=== PATIENT | female | born 1985 | race Caucasian/White ===

== ENCOUNTER 2016-07-01 05:23 | Observation (INO) | payer BC ==
[~2016-07-01] VITALS: Ht 165.1 cm; Wt 102.5 kg
[~2016-07-01 05:23] MED LIST: MULT-8
[2016-07-01 06:13] VITALS: BP 147/78; PULSE 87; RESP 18; TEMP 99; O2SAT 98
[2016-07-01] MEDS ORDERED: ceFAZolin 2 GM PREMIX 50 ML ONE (06:21)
[2016-07-01 06:47] LABS: BASOPHIL % 0.3 % (0.0-2.0); EOSINOPHIL # 0.2 TH/MM3 (0-0.4); EOSINOPHIL % 2.3 % (0.0-4.0); HEMATOCRIT 38.6 % (35.0-46.0); HEMO FLAGS DIFF FINAL; LYMPH % 22.8 % (9.0-44.0); LYMPHOCYTE # 1.8 TH/MM3 (1.0-4.8); MEAN CELL VOLUME 87.4 FL (80.0-100.0); MEAN CORPUSCULAR HEMOGLOBIN 29.7 PG (27.0-34.0); MONO % 9.8 % (0.0-8.0); NEUT % 64.8 % (16.0-70.0); PLATELET COUNT 281 TH/MM3 (150-450); RED BLOOD COUNT 4.41 MIL/MM3 (4.00-5.30); RED CELL DISTRIBUTION WIDTH 12.7 % (11.6-17.2); WHITE BLOOD COUNT 7.8 TH/MM3 (4.0-11.0)
[2016-07-01] MEDS ORDERED: FAMOTIDINE 20 MG/2 ML VIAL ONE (07:07)
[2016-07-01] MEDS ORDERED: ACETAMINOPHEN 1000 MG/100 ML VIAL IV ONE (07:36)
[2016-07-01] MEDS ORDERED: *morphine SULFATE 8 MG/ML PERIprocedure ONLY ONE ×2 (08:56→09:07)
[2016-07-01] MEDS ORDERED: *diphenhydrAMINE HCL 50 MG/ML VIAL PERIprocedural Use ONLY ONE (09:06)
--- NOTE | 2016-07-01 09:10 | PD.OP ---
Operative Report Date of Surgery: July 01, 2016 Preoperative Diagnosis: (1) Uterine prolapse Postoperative Diagnosis: (1) Uterine prolapse Procedure: TVH bilateral salpingectomy Anesthesia: general oro Surgeon: Shaquille Valdes Leg Man(s): Shaquille Agarwal MD July 01, 2016 09:10
[2016-07-01] MEDS ORDERED: *MEPERIDINE 25 MG INJ VIAL PERIprocedural Use ONLY ONE (09:13)
[2016-07-01] MEDS ORDERED: KETOROLAC TROMETHAMINE 30 MG/ML (IVP) VIAL IVP PRN (09:15)
[2016-07-01] MEDS ORDERED: diphenhydrAMINE HCL 25 MG CAP PO PRN (09:15)
[2016-07-01] MEDS ORDERED: SODIUM CHLORIDE 0.9% FLUSH 10 ML FLUSH IV FLUSH PRN (09:15)
[2016-07-01] MEDS ORDERED: ONDANSETRON HCL 4 MG/2 ML VIAL IVP PRN (09:15)
[2016-07-01] MEDS ORDERED: IBUPROFEN 600 MG TAB PO PRN (09:15)
[2016-07-01] MEDS ORDERED: HYDROmorphone HCL PF 1 MG/ML VIAL IVP PRN (09:15)
[2016-07-01] MEDS ORDERED: DO NOT ADM ANY ANTICOAGULANT DRUGS PRN (09:30)
[2016-07-01] MEDS ORDERED: LACTATED RINGER'S 1000 ML INJ 1,000 ML IV ONE (12:00)
[2016-07-01] MEDS ORDERED: ONDANSETRON HCL 4 MG/2 ML VIAL IV PUSH ONE (12:00)
[2016-07-01] MEDS ORDERED: DICLOFENAC SODIUM 37.5 MG/ML VIAL IV PUSH ONE (12:00)
[2016-07-01] MEDS ORDERED: NEOSTIGMINE 3 MG/3 ML SYR IV ONE (12:00)
[2016-07-01] MEDS ORDERED: PROPOFOL 200 MG/20 ML AMP IV ONE (12:00)
--- NOTE | 2016-07-01 12:39 | MP ---
cc: ESTRELLITA VALDES DATE OF PROCEDURE 07/01/2016 PROCEDURE Total vaginal hysterectomy, bilateral salpingectomy. PREOPERATIVE DIAGNOSIS Prolapse. Pelvic pain. POSTOPERATIVE DIAGNOSIS Prolapse. Pelvic pain. SURGEON Dr. Estrellita Valdes ESTIMATED BLOOD LOSS 300 cc. COMPLICATIONS None. FINDINGS Normal uterus, boggy, with probable adenomyosis. Normal fallopian tubes but they presented themselves to be removed vaginally. PROCEDURE IN DETAIL After informed consent, the patient was taken to the operating room where she was placed under general anesthesia, placed in supine position, legs in the candy-cane stirrups. The abdomen, perineum and vagina were prepped and draped in the normal sterile fashion. After adequate anesthesia and a time-out was taken, a speculum was placed in the vagina, the cervix grasped with a single-tooth tenaculum, injected anteriorly. We entered the anterior cul-de-sac without difficulty with scissors dissecting with Caldera scissors until we reached the anterior cul-de-sac, entered without difficulty. The posterior cul-de-sac was slightly more difficult to enter so clamps were used to clamp the uterine arteries bilaterally before entering the posterior cul-de-sac. A second clamp was used and then we entered the posterior cul-de-sac without difficulty. The clamps then used to clamp the anterior and posterior peritoneum all the way up to the level of the utero-ovarian ligament, clamping, cutting and tying with Vicryl suture. Good hemostasis was achieved along the way. At this point the uterus was amputated and the apex at the very top of the utero-ovarian ligament were doubly tied with Vicryl suture. Good hemostasis had been achieved at all pedicles. At this point the fallopian tubes were on the ovaries and they were presenting to the incision, so we grasped the fallopian tubes bilaterally with the Babcocks and removed them with a Alda clamp and then excising without difficulty. The patient tolerated this well. Good hemostasis was achieved at this point. The vaginal cuff was run with a running locking stitch of chromic suture. Endometriosis was seen in the posterior cul-de-sac which may have obliterated part of the cul-de-sac which was probably why the patient was difficult to enter initially. The vaginal cuff was then closed in multiple [id number] sutures. Good hemostasis was achieved. The patient tolerated the procedure well. She was taken to the recovery room in stable condition. MD NATACHA Metcalf/JUANJOSE /9:15 AM /12:31 PM
[2016-07-01] MEDS ORDERED: MIDAZOLAM HCL 2 MG/2 ML VIAL ONE (14:30)
[2016-07-01 14:55] VITALS: BP 109/59; PULSE 98; RESP 18; TEMP 96.8; O2SAT 96
[2016-07-01] MEDS: oxyCODONE/ACETAMINOPHEN 5 MG/325 MG TAB PO PRN ×2 (15:15→19:17)
[2016-07-01 20:00] VITALS: BP 118/58; PULSE 100; RESP 19; TEMP 98.8; O2SAT 96
[2016-07-01] MEDS: SODIUM CHLORIDE 0.9% FLUSH 10 ML FLUSH IV FLUSH SCH (20:40)
[2016-07-02] VITALS (9 sets, daily range): BP systolic 110–126; BP diastolic 57–72; PULSE 77–92; RESP 17–20; TEMP 97.1–98.7; O2SAT 94–98
[2016-07-02] MEDS: oxyCODONE/ACETAMINOPHEN 5 MG/325 MG TAB PO PRN ×5 (04:35→23:22)
[2016-07-02 06:31] LABS: BASOPHIL % 0.2 % (0.0-2.0); EOSINOPHIL # 0.1 TH/MM3 (0-0.4); EOSINOPHIL % 0.5 % (0.0-4.0); HEMATOCRIT 34.8 % (35.0-46.0); HEMO FLAGS DIFF FINAL; LYMPH % 14.8 % (9.0-44.0); LYMPHOCYTE # 2.1 TH/MM3 (1.0-4.8); MEAN CELL VOLUME 88.2 FL (80.0-100.0); MEAN CORPUSCULAR HEMOGLOBIN 29.3 PG (27.0-34.0); MEAN CORPUSCULAR HGB CONC 33.2 % (32.0-36.0); MONO % 9.1 % (0.0-8.0); NEUT % 75.4 % (16.0-70.0); PLATELET COUNT 284 TH/MM3 (150-450); RED BLOOD COUNT 3.95 MIL/MM3 (4.00-5.30); RED CELL DISTRIBUTION WIDTH 12.8 % (11.6-17.2); WHITE BLOOD COUNT 14.5 TH/MM3 (4.0-11.0)
--- NOTE | 2016-07-02 07:08 | HHI.PR ---
Subjective Remarks Doing well, pain is well controlled, eating well. Objective Vital Signs Vital Signs Date Time Temp Pulse Resp B/P Pulse Ox O2 Delivery O2 Flow Rate FiO2 07/02/16 04:00 97.1 77 19 112/63 97 07/02/16 03:52 94 21 07/02/16 00:00 98.7 84 19 112/57 94 07/01/16 20:00 98.8 100 19 118/58 96 07/01/16 14:55 96.8 98 18 109/59 96 07/01/16 14:15 99.0 93 16 112/55 95 Room Air 07/01/16 13:00 98.7 85 16 4 Room Air 07/01/16 11:30 81 16 115/57 93 Room Air 07/01/16 09:45 84 16 114/65 98 Nasal Cannula 2 07/01/16 09:30 71 16 126/72 97 Nasal Cannula 2 07/01/16 09:15 74 16 125/71 94 Nasal Cannula 2 07/01/16 09:00 102 16 122/68 95 Nasal Cannula 4 07/01/16 08:42 98.2 95 16 135/81 98 Nasal Cannula 4 I/O 07/01/16 07/01/16 07/01/16 07/02/16 07/02/16 07/02/16 07:00 15:00 23:00 07:00 15:00 23:00 Intake Total 2800 ml 380 ml 220 ml Output Total 1325 ml 1200 ml Balance 1475 ml 380 ml -980 ml Intake Oral 600 ml 380 ml 220 ml IV Total 700 ml Other 1500 ml Output Urine Total 525 ml 1200 ml Estimated Blood Loss 300 ml Other 500 ml # Bowel Movements 0 Result Diagram: 07/02/16 0430 Objective Remarks Chest is clear, regular rate and rhythm. Abdomen is soft and non-distended. Incision is clean and dry. Ext no CCE. A/P Assessment and Plan Post Op Day 1 Doing well Home today and return to office in two weeks. Shaquille Valdes MD July 02, 2016 07:08
--- NOTE | 2016-07-02 07:09 | HHI.DCPOC ---
Discharge Care Plan Diagnosis: (1) Uterine prolapse Report Symptoms to Your Doctor -Temperate above 100.5 degrees -Redness, of incision or excessive or foul smelling drainage -Unusual pain or calf pain -Increased vaginal bleeding -Painful or difficulty urinating -Feelings of extreme sadness or anxiety after 2 weeks Goals to Promote Your Health * To prevent worsening of your condition and complications * To maintain your health at the optimal level Directions to Meet Your Goals Take your medications as prescribed Follow your dietary instruction Follow activity as directed Ensure plenty of rest for recovery Drink fluids for hydration Keep your appointments as scheduled Take your immunizations and boosters as scheduled If your symptoms worsen call your PCP, if no PCP go to Urgent Care Center or Emergency Room Smoking is Dangerous to Your Health. Avoid second hand smoke Call the 24-hour crisis hotline for domestic abuse at Shaquille Valdes MD July 02, 2016 07:09
[2016-07-02] MEDS ORDERED: OXYC1TAB63 PO (07:11)
--- NOTE | 2016-07-02 07:16 | HHI.DS ---
Admission Date July 01, 2016 at 09:06 Discharge Date: July 02, 2016 Admitting Diagnosis Diagnosis: (1) Uterine prolapse Diagnosis: Principal Brief History Patient came for TVH for pelvic pain and prolapse Hospital Course Patient had TVH for pain and discomfort. She did well and was DC home 24 hours later Pt Condition on Discharge: Good Discharge Disposition: Discharge Home Discharge Instructions Diet Instructions: As Tolerated, No Restrictions Activities You Can Perform: Pelvic Rest Activities to Avoid: Driving for 24 hrs Follow up Referrals: [facility] [employer] [facility] - 2 Weeks @ [facility] with Shaquille Valdes MD New Medications: Oxycodone-Acetaminophen (Oxycodone-Acetaminophen) 5-325 mg Tab 2 TAB PO Q4H PRN PAIN SCALE 6 TO 10 #30 TAB Continued Medications: Multiple Vitamins W/ Minerals ([facility] Womens) 1 Tab Tab TAKES TABLETS AND SHAKE WELL Shaquille Valdes MD July 02, 2016 07:16
--- NOTE | 2016-07-02 19:23 | HHI.PR ---
Subjective Remarks patient having no flatus and distended. she has good bowel sounds but is losing appetite. she is going to change to clears but will hold DC because of inability to pass gas and risk of illeus Objective Vital Signs Date Time Temp Pulse Resp B/P Pulse Ox O2 Delivery O2 Flow Rate FiO2 07/02/16 17:28 97 21 07/02/16 15:50 98.3 78 20 126/61 97 07/02/16 11:00 98.1 92 20 115/61 95 07/02/16 10:05 96 07/02/16 07:50 98.3 81 20 110/61 97 07/02/16 04:00 97.1 77 19 112/63 97 07/02/16 03:52 94 21 07/02/16 00:00 98.7 84 19 112/57 94 07/01/16 20:00 98.8 100 19 118/58 96 I/O 07/01/16 07/01/16 07/01/16 07/02/16 07/02/16 07/02/16 07:00 15:00 23:00 07:00 15:00 23:00 Intake Total 2800 ml 380 ml 220 ml 941 ml Output Total 1325 ml 1200 ml 150 ml Balance 1475 ml 380 ml -980 ml 791 ml Intake Oral 600 ml 380 ml 220 ml 941 ml IV Total 700 ml Other 1500 ml Output Urine Total 525 ml 1200 ml 150 ml Estimated Blood Loss 300 ml Other 500 ml # Bowel Movements 0 0 Result Diagram: 07/02/16 0430 Shaquille Valdes MD July 02, 2016 19:23
[2016-07-02] MEDS: SODIUM CHLORIDE 0.9% FLUSH 10 ML FLUSH IV FLUSH SCH (19:49)
[2016-07-03] VITALS: BP 103/56; PULSE 77; RESP 16; TEMP 97.6; O2SAT 97
[2016-07-03 04:00] VITALS: BP 101/59; PULSE 85; RESP 15; TEMP 97.7; O2SAT 98
[2016-07-03] MEDS: oxyCODONE/ACETAMINOPHEN 5 MG/325 MG TAB PO PRN ×2 (06:00→09:47)
--- NOTE | 2016-07-03 07:56 | HHI.PR ---
Subjective Remarks Doing well, pain is well controlled,she had no flatus yesterday and changed to clears now passing flatus feels much better ready for dc homel. Objective Vital Signs Vital Signs Date Time Temp Pulse Resp B/P Pulse Ox O2 Delivery O2 Flow Rate FiO2 07/03/16 04:00 97.7 85 15 101/59 98 07/03/16 00:00 97.6 77 16 103/56 97 07/02/16 20:00 98.0 84 17 112/72 98 07/02/16 17:28 97 21 07/02/16 15:50 98.3 78 20 126/61 97 07/02/16 11:00 98.1 92 20 115/61 95 07/02/16 10:05 96 I/O 07/02/16 07/02/16 07/02/16 07/03/16 07/03/16 07/03/16 07:00 15:00 23:00 07:00 15:00 23:00 Intake Total 220 ml 941 ml 480 ml 480 ml Output Total 1200 ml 150 ml 100 ml Balance -980 ml 791 ml 380 ml 480 ml Intake Oral 220 ml 941 ml 480 ml 480 ml Output Urine Total 1200 ml 150 ml 100 ml # Voids 3 # Bowel Movements 0 0 Result Diagram: 07/02/16 0430 Objective Remarks Chest is clear, regular rate and rhythm. Abdomen is soft and non-distended. Incision is clean and dry. Ext no CCE. A/P Assessment and Plan Post Op Day 2 GI function normal now Doing well Home today and return to office in two weeks. Shaquille Valdes MD July 03, 2016 07:55
[2016-07-03 08:00] VITALS: BP 114/73; PULSE 82; RESP 16; TEMP 98.4; O2SAT 98
[2016-07-03] MEDS: SODIUM CHLORIDE 0.9% FLUSH 10 ML FLUSH IV FLUSH SCH (08:46)
== END 2016-07-03 10:30 | disposition home or self-care (01) ==
LOC: HSDC 05:23 → HSDI 09:06 → HOCA 14:34
PROVIDERS: ADMIT Obstetrics & Gynecology; ATTEND Obstetrics & Gynecology
DX: N80.9 Endometriosis, unspecified (principal); N81.4 Uterovaginal prolapse, unspecified; N73.6 Female pelvic peritoneal adhesions (postinfective); N94.89 Other specified conditions associated with female genital organs and menstrual cycle; E66.9 Obesity, unspecified; Z68.37 Body mass index [BMI] 37.0-37.9, adult
CPT/HCPCS: 58262; 84703; 85025; 86850; 86900; 86901; 88305; G0378; J0131; J0690; J1130; J1170; J1200; J2175; J2250; J2270; J2405; J2710; J3010; J7120; 88307

== ENCOUNTER 2016-08-13 21:34 | Emergency (ER) | payer BC ==
[~2016-08-13] VITALS: Ht 165.1 cm; Wt 102.0 kg
[~2016-08-13 21:34] MED LIST changes: +OXYC1TAB63 PO
[2016-08-13 21:36] VITALS: BP 134/88; PULSE 128; RESP 18; TEMP 100.7; O2SAT 100
--- NOTE | 2016-08-13 21:52 | PD ---
Physical Exam Date Seen by Provider: Aug 13, 2016 Time Seen by Provider: 21:50 Narrative 30 yo female here for abdominal pain, fever, N/V. No chest pain or SOB. Started today. Not able to keep anything down. Believes she has the flu. No sick contacts. Pain is 6/10. Body aches. Vitals are stable in triage. Awaiting bed placement. Data Data Last Documented VS Vital Signs Date Time Temp Pulse Resp B/P Pulse Ox O2 Delivery O2 Flow Rate FiO2 08/13/16 21:36 100.7 128 18 134/88 100 Room Air [facility] Medical Record Reviewed: Yes Supervised Visit with EVERARDO: No Harjinder Fischer Aug 13, 2016 21:52
[2016-08-13] MEDS ORDERED: SODIUM CHLOR 0.9% 1000 ML INJ 1,000 ML IV SCH (21:56)
[2016-08-13] MEDS ORDERED: ONDANSETRON HCL 4 MG/2 ML VIAL IVP ONE (22:00)
[2016-08-13] MEDS ORDERED: SODIUM CHLORIDE 0.9% FLUSH 10 ML FLUSH IV FLUSH PRN (22:00)
--- NOTE | 2016-08-13 22:09 | PD ---
HPI Chief Complaint: GI Complaint Time Seen by Provider: 21:55 Travel History International Travel<30 days: No Contact w/Intl Traveler<30days: No Traveled to known affect area: No History of Present Illness HPI C/O N/V/D/ ABD CRAMPS (DIFFUSE, NONRAD, CRAMPY, 07/26) ONSET TODAY, HAS NOT IMPROVED AND STARTED TO FEEL LIGHTHEADED/DIZZY WITH STANDING SO DECIDED TO GET EVAL IN ER, NO OTHER SICK CONTACTS...PER PATIENT SHE HAD HYSTERECTOMY A FEW WEEKS AGO PFSH Past Medical History Cancer: No Cardiovascular Problems: No Endocrine: No Genitourinary: Yes (STRESS INCONTINENCE) Hepatitis: No Hiatal Hernia: No Immune Disorder: No Musculoskeletal: No Neurologic: No Psychiatric: No Reproductive: Yes (PROLAPSED UTERUS) Respiratory: No : 1 Para: 1 Past Surgical History Abdominal Surgery: Yes (APPY) AICD: No Appendectomy: Yes Body Medical Devices: NONE Cardiac Surgery: No Ear Surgery: No Endocrine Surgery: No Eye Surgery: No Genitourinary Surgery: No Gynecologic Surgery: No Joint Replacement: No Oral Surgery: No Pacemaker: No Thoracic Surgery: No Social History Alcohol Use: No Tobacco Use: No Substance Use: No Allergies-Medications (Allergen,Severity, Reaction): Coded Allergies: No Known Allergies (Verified , 08/13/16) Reported Meds & Prescriptions Reported Meds & Active Scripts Active No Active Prescriptions or Reported Medications Review of Systems Except as stated in HPI: all other systems reviewed are Neg Gastrointestinal: Positive: Nausea, Vomiting, Diarrhea, Abdominal Pain Physical Exam Narrative GENERAL: SKIN: Warm and dry. HEAD: Atraumatic. Normocephalic. EYES: Pupils equal and round. No scleral icterus. No injection or drainage. ENT: No nasal bleeding or discharge. Mucous membranes pink and moist. NECK: Trachea midline. No JVD. CARDIOVASCULAR: Regular rate and rhythm. RESPIRATORY: No accessory muscle use. Clear to auscultation. Breath sounds equal bilaterally. GASTROINTESTINAL: Abdomen soft, non-tender, nondistended. HYPERACTIVE BOWEL SOUNDS BUT WITHOUT RIGIDITY/REBOUND OR GUARDING MUSCULOSKELETAL: Extremities without clubbing, cyanosis, or edema. No obvious deformities. NEUROLOGICAL: Awake and alert. No obvious cranial nerve deficits. Motor grossly within normal limits. Five out of 5 muscle strength in the arms and legs. Normal speech. PSYCHIATRIC: Appropriate mood and affect; insight and judgment normal. Data Data Last Documented VS Vital Signs Date Time Temp Pulse Resp B/P Pulse Ox O2 Delivery O2 Flow Rate FiO2 08/13/16 22:53 16 08/13/16 22:44 96 Room Air 08/13/16 21:36 100.7 128 134/88 Orders Complete Blood Count With Diff (08/13/16 21:56) Comprehensive Metabolic Panel (08/13/16 21:56) Lipase (08/13/16 21:56) Urinalysis - C+S If Indicated (08/13/16 21:56) Iv Access Insert/Monitor (08/13/16 21:56) Ecg Monitoring (08/13/16 21:56) Oximetry (08/13/16 21:56) NPO (08/13/16 21:56) Ondansetron Inj (Zofran Inj) (08/13/16 22:00) Sodium Chlor 0.9% 1000 Ml Inj (Ns 1000 M (08/13/16 21:56) Sodium Chloride 0.9% Flush (Ns Flush) (08/13/16 22:00) Influenzae A/B Antigen (08/13/16 21:57) Hydromorphone Pf Inj (Dilaudid Pf Inj) (08/13/16 22:15) Ct Abd/Pel W/O Iv Contrast (08/13/16 22:10) Metronidazole 500 Mg Inj (Flagyl 500 Mg (08/13/16 22:45) Ceftriaxone Inj (Rocephin Inj) (08/13/16 22:45) Labs Laboratory Tests Test 08/13/16 08/13/16 21:00 22:00 White Blood Count 20.2 TH/MM3 Red Blood Count 4.87 MIL/MM3 Hemoglobin 14.5 GM/DL Hematocrit 42.5 % Mean Corpuscular Volume 87.2 FL Mean Corpuscular Hemoglobin 29.7 PG Mean Corpuscular Hemoglobin 34.0 % Concent Red Cell Distribution Width 12.9 % Platelet Count 455 TH/MM3 Mean Platelet Volume 7.7 FL Neutrophils (%) (Auto) 88.8 % Lymphocytes (%) (Auto) 4.8 % Monocytes (%) (Auto) 6.1 % Eosinophils (%) (Auto) 0.1 % Basophils (%) (Auto) 0.2 % Neutrophils # (Auto) 17.9 TH/MM3 Lymphocytes # (Auto) 1.0 TH/MM3 Monocytes # (Auto) 1.2 TH/MM3 Eosinophils # (Auto) 0.0 TH/MM3 Basophils # (Auto) 0.0 TH/MM3 CBC Comment DIFF FINAL Differential Comment Sodium Level 138 MEQ/L Potassium Level 4.1 MEQ/L Chloride Level 104 MEQ/L Carbon Dioxide Level 24.2 MEQ/L Anion Gap 10 MEQ/L Blood Urea Nitrogen 14 MG/DL Creatinine 0.98 MG/DL Estimat Glomerular Filtration 66 ML/MIN Rate Random Glucose 107 MG/DL Calcium Level 9.4 MG/DL Total Bilirubin 0.5 MG/DL Aspartate Amino Transf 12 U/L (AST/SGOT) Alanine Aminotransferase 31 U/L (ALT/SGPT) Alkaline Phosphatase 101 U/L Total Protein 8.2 GM/DL Albumin 3.9 GM/DL Lipase 61 U/L Urine Color YELLOW Urine Turbidity HAZY Urine pH 6.0 Urine Specific [place] 1.031 Urine Protein TRACE mg/dL Urine Glucose (UA) NEG mg/dL Urine Ketones TRACE mg/dL Urine Occult Blood TRACE Urine Nitrite NEG Urine Bilirubin NEG Urine Urobilinogen LESS THAN 2.0 MG/DL Urine Leukocyte Esterase MOD Urine RBC 2 /hpf Urine WBC 2 /hpf Urine Squamous Epithelial 3 /hpf Cells Urine Bacteria RARE /hpf Urine Mucus FEW /lpf Microscopic Urinalysis Comment CULT NOT INDICATED MDM Medical Decision Making Medical Screen Exam Complete: Yes Emergency Medical Condition: Yes Medical Record Reviewed: Yes Differential Diagnosis VIRAL/BACTERIAL ENTERITIS, V ELECTROLYTE ABNL Narrative Course PATIENT SEEN AND WORKED UP FOR INTRAABDOMINAL COMPLICATIONS OF HYSTERECTOMY VS COMPLICATIONS OF ENTERITIS (ABSCESS, PERF) OF WHICH NONE WERE FOUND ON CAT SCAN. PATIENT'S FINDINGS ALL D/W FAMILY AND PATIENT , CURRENTLY RECEIVING IV ABX WILL D/C HOME ON PO ABX WELL Diagnosis Primary Impression: ACUTE BACTERIAL ENTERITIS Scripts Ondansetron Odt (Zofran Odt)4 Mg Tab4 Mg SL Q6HR PRN (Nausea/Vomiting) #20 TAB Prov:Nikko Evans MD 08/13/16 Metronidazole (Flagyl)500 Mg [id number] Mg PO TID #21 TAB Prov:Nikko Evans MD 08/13/16 Codeine-Acetaminophen 30-300 mg Tab1 Tab PO Q4H PRN (PAIN) #20 TAB Prov:Nikko Evans MD 08/13/16 Ciprofloxacin 500 Mg [id number] Mg PO BID #14 TAB Prov:Nikko Evans MD 08/13/16 Disposition: 01 DISCHARGE HOME Condition: Stable iNkko Evans MD Aug 13, 2016 22:09
[2016-08-13] MEDS ORDERED: HYDROmorphone HCL PF 1 MG/ML VIAL IVS ONE (22:15)
[2016-08-13 22:29] LABS: BACTERIA, URINE RARE /hpf; BLOOD, URINE TRACE (NEG); COMMENT (UR) CULT NOT INDICATED; CULTURE IF INDICATED CULT NOT INDICATED; GLUCOSE,URINE NEG (NEG); KETONE, URINE TRACE mg/dL (NEG); MUCUS URINE FEW /lpf (OCC); NITRITE,URINE NEG (NEG); SQUAMOUS EPITHELIAL CELL URINE 3 /hpf (0-5); URINE COLOR YELLOW (YELLW/STRAW)
[2016-08-13 22:31] LABS: AUTOMATED NEUTROPHIL # 17.9 TH/MM3 (1.8-7.7); BASOPHIL % 0.2 % (0.0-2.0); EOSINOPHIL % 0.1 % (0.0-4.0); HEMATOCRIT 42.5 % (35.0-46.0); HEMO FLAGS DIFF FINAL; LYMPH % 4.8 % (9.0-44.0); MEAN CELL VOLUME 87.2 FL (80.0-100.0); MEAN CORPUSCULAR HEMOGLOBIN 29.7 PG (27.0-34.0); MONO % 6.1 % (0.0-8.0); NEUT % 88.8 % (16.0-70.0); PLATELET COUNT 455 TH/MM3 (150-450); RED BLOOD COUNT 4.87 MIL/MM3 (4.00-5.30); RED CELL DISTRIBUTION WIDTH 12.9 % (11.6-17.2); WHITE BLOOD COUNT 20.2 TH/MM3 (4.0-11.0)
[2016-08-13 22:44] VITALS: RESP 16; O2SAT 96
[2016-08-13] MEDS ORDERED: cefTRIAXone INJ 1,000 MG in SODIUM CHLORIDE 0.9% INJ 100 ML IV ONE (22:45)
[2016-08-13] MEDS ORDERED: metroNIDAZOLE 500 MG INJ 100 ML IV ONE (22:45)
[2016-08-13 22:46] LABS: ANION GAP 10 MEQ/L (5-15); AST (GOT) 12 U/L (15-37); BICARBONATE 24.2 MEQ/L (21.0-32.0); BLOOD UREA NITROGEN 14 MG/DL (7-18); CHLORIDE 104 MEQ/L (98-107); GLOMERULAR FILTRATION RATE 66 ML/MIN (>89); POTASSIUM 4.1 MEQ/L (3.5-5.1); SODIUM (NA) 138 MEQ/L (136-145)
[2016-08-13 22:47] LABS: ALT (GPT) 31 U/L (10-53)
[2016-08-13 22:50] LABS: ALKALINE PHOSPHATASE 101 U/L (45-117); TOTAL BILIRUBIN ADULT 0.5 MG/DL (0.2-1.0)
--- NOTE | 2016-08-13 23:13 | RADRPT ---
EXAM DATE/TIME: 08/13/2016 22:49 [facility] COMPARISON: No previous studies available for comparison. INDICATIONS : Abdomen pain with nausea and vomiting. 6 weeks postoperative hysterectomy. ORAL CONTRAST: No oral contrast ingested. RADIATION DOSE: 16.44 CTDIvol (mGy) MEDICAL HISTORY : None SURGICAL HISTORY : Appendectomy. Hysterectomy. ENCOUNTER: Initial ACUITY: 1 day PAIN SCALE: 7/10 LOCATION: Bilateral abdomen TECHNIQUE: Volumetric scanning of the abdomen and pelvis was performed. Using automated exposure control and ad justment of the mA and/or kV according to patient size, radiation dose was kept as low as reasonably achievable to obtain optimal diagnostic quality images. DICOM format image data is available electro nically for review and comparison. FINDINGS: LOWER LUNGS: The visualized lower lungs are clear. LIVER: Homogeneous density without lesion for noncontrast technique. There is no dilation of the biliary tr ee. No calcified gallstones. SPLEEN: Normal size without lesion. PANCREAS: Within normal limits. KIDNEYS: Normal in size and shape. There is no mass, stone, or hydronephrosis. ADRENAL GLANDS: Within normal limits. VASCULAR: There is no aortic aneurysm. BOWEL/MESENTERY: No dilated loops of small or large bowel. ABDOMINAL WALL: Within normal limits. RETROPERITONEUM: There is no lymphadenopathy. BLADDER: No wall thickening or mass. REPRODUCTIVE: Hysterectomy. No evidence of free fluid. INGUINAL: There is no lymphadenopathy or hernia. MUSCULOSKELETAL: Within normal limits for patient age. CONCLUSION: Negative noncontrast CT abdomen/pelvis. Don Zamarripa MD on August 13, 2016 at 23:10 Board Certified Radiologist. This report was verified electronically.
[2016-08-13] MEDS ORDERED: CIPR500T2 PO (23:29)
[2016-08-13] MEDS ORDERED: CODE30TA2 PO (23:29)
[2016-08-13] MEDS ORDERED: METR-1 PO (23:29)
[2016-08-13] MEDS ORDERED: ZOFR4TAB3 SL (23:29)
[2016-08-14] MEDS ORDERED: ONDANSETRON HCL 4 MG/2 ML VIAL IV PUSH ONE
== END 2016-08-14 00:27 | disposition home or self-care (01) ==
LOC: NEPE 21:34
DX: A04.9 Bacterial intestinal infection, unspecified (principal)
CPT/HCPCS: 74176; 80053; 81001; 83690; 84703; 85025; 87804; 96374; 96375; 96376; 99285; J0696; J1170; J2405; J7030

== ENCOUNTER 2016-11-12 16:43 | Emergency (ER) | payer BC ==
[~2016-11-12] VITALS: Ht 165.1 cm; Wt 85.0 kg
[~2016-11-12 16:43] MED LIST changes: +CIPR500T2 PO; +CODE30TA2 PO; +METR-1 PO; -MULT-8; -OXYC1TAB63 PO; +ZOFR4TAB3 SL
[2016-11-12 16:45] VITALS: BP 154/76; PULSE 86; RESP 18; TEMP 98.4; O2SAT 99
--- NOTE | 2016-11-12 16:52 | PD ---
Physical Exam Time Seen by Provider: 16:51 Narrative 30 y/o female here with neck pain after flipping her hair back and forth this morning and feeling a "pop." Vital signs reviewed. Seen at triage desk. Awaiting bed placement. Data Data Last Documented VS Vital Signs Date Time Temp Pulse Resp B/P (MAP) Pulse Ox O2 Delivery O2 Flow Rate FiO2 11/12/16 16:45 98.4 86 18 154/76 (102) 99 Room Air [facility] Medical Record Reviewed: Yes Supervised Visit with EVERARDO: Matt Fournier Nov 12, 2016 16:52
[2016-11-12] MEDS ORDERED: ZOLO100T PO (19:21)
[2016-11-12] MEDS ORDERED: IBUP800T23 PO (19:25)
[2016-11-12] MEDS ORDERED: ROBA500T PO (19:25)
--- NOTE | 2016-11-12 19:25 | PD ---
HPI Chief Complaint: Back/ Neck Pain or Injury Time Seen by Provider: 19:07 Travel History International Travel<30 days: No Contact w/Intl Traveler<30days: No Traveled to known affect area: No History of Present Illness HPI 30-year-old female presents to the emergency department for evaluation a right sided neck pain. Patient states she was brushing her hair with her head upside down and when she flung her head back, she felt a pop in the right side of her neck and has had pain ever since. States the pain is constant, achy, tight sensation. Rates it a 6 out of 10. States it is exacerbated with movement. She took 1 ibuprofen this morning. Denies any focal deficits or weakness. She has no other symptoms to report. 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) Immune Disorder: No Musculoskeletal: No Neurologic: No Psychiatric: No Reproductive: Yes (PROLAPSED UTERUS) Respiratory: No ?: Not : 1 Para: 1 Past Surgical History Abdominal Surgery: Yes (APPY) AICD: No Appendectomy: Yes Body Medical Devices: NONE Cardiac Surgery: No Ear Surgery: No Endocrine Surgery: No Eye Surgery: No Genitourinary Surgery: No Gynecologic Surgery: No Joint Replacement: No Oral Surgery: No Pacemaker: No Thoracic Surgery: No Social History Alcohol Use: No Tobacco Use: No Substance Use: No Allergies-Medications (Allergen,Severity, Reaction): Coded Allergies: No Known Allergies (Verified , 11/12/16) Reported Meds & Prescriptions Reported Meds & Active Scripts Active Ibuprofen 800 Mg Tab 800 Mg PO Q8H PRN Robaxin (Methocarbamol) 500 Mg Tab 500 Mg PO QID PRN Reported Zoloft (Sertraline HCl) 100 Mg Tab 100 Mg PO DAILY Review of Systems Except as stated in HPI: all other systems reviewed are Neg Physical Exam Narrative GENERAL: Well-nourished female patient, in no acute distress SKIN: Focused skin assessment warm/dry. HEAD: Atraumatic. Normocephalic. EYES: Pupils equal and round. No scleral icterus. No injection or drainage. ENT: No nasal bleeding or discharge. Mucous membranes pink and moist. NECK: Trachea midline. No JVD. No cervical spine tenderness. Tenderness elicited palpation along the right trapezius musculature. There is a palpable spasm. CARDIOVASCULAR: Regular rate and rhythm. No murmur appreciated. RESPIRATORY: No accessory muscle use. Clear to auscultation. Breath sounds equal bilaterally. GASTROINTESTINAL: Abdomen soft, non-tender, nondistended. Hepatic and splenic margins not palpable. MUSCULOSKELETAL: No obvious deformities. No clubbing. No cyanosis. No edema. NEUROLOGICAL: Awake and alert. No obvious cranial nerve deficits. Motor grossly within normal limits. Normal speech. PSYCHIATRIC: Appropriate mood and affect; insight and judgment normal. Data Data Last Documented VS Vital Signs Date Time Temp Pulse Resp B/P (MAP) Pulse Ox O2 Delivery O2 Flow Rate FiO2 11/12/16 16:45 98.4 86 18 154/76 (102) 99 Room Air Orders Orders Ketorolac Inj (Toradol Inj) (11/12/16 19:30) Orphenadrine Inj (Norflex Inj) (11/12/16 19:30) MDM Medical Decision Making Medical Screen Exam Complete: Yes Emergency Medical Condition: Yes Medical Record Reviewed: Yes Differential Diagnosis Cervical strain versus discogenic pain versus radiculopathy Narrative Course 30-year-old female presents to emergency department for evaluation neck pain. Patient appears without distress. She has no focal deficits or weakness. Patient will be given a muscle relaxant is counseled on care. She is encouraged follow-up with primary care provider and return immediately with any acute worsening of symptoms. Diagnosis Primary Impression: Cervical strain, acute Qualified Codes: S16.1XXA - Strain of muscle, fascia and tendon at neck level , initial encounter Referrals: Primary Care Physician Patient Instructions: Cervical Neck Strain Exercises (GEN), General Instructions Additional Instructions: Warm compresses to the affected area Follow-up the primary care provider Return immediately with any acute worsening of symptoms Med/Other Pt SpecificInfo: Prescription(s) given Scripts Ibuprofen (Ibuprofen) 800 Mg Tab 800 MG PO Q8H Y for Pain/Inflammation, #30 TAB 0 Refills Prov: Shira Lanier 11/12/16 Methocarbamol (Robaxin) 500 Mg Tab 500 MG PO QID Y for MUSCLE SPASM, #20 TAB 0 Refills Prov: Shira Lanier 11/12/16 Disposition: 01 DISCHARGE HOME Condition: Stable Shira Lanier Nov 12, 2016 19:25
[2016-11-12] MEDS ORDERED: KETOROLAC TROMETHAMINE 60 MG/2 ML (IM) VIAL IM ONE (19:30)
[2016-11-12] MEDS ORDERED: ORPHENADRINE INJ 60 MG/2 ML AMP IM ONE (19:30)
== END 2016-11-12 19:41 | disposition home or self-care (01) ==
LOC: NEPK 16:43
DX: S16.1XXA Strain of muscle, fascia and tendon at neck level, initial encounter (principal); I10 Essential (primary) hypertension; X50.1XXA Overexertion from prolonged static or awkward postures, initial encounter; Y93.89 Activity, other specified; Y92.009 Unspecified place in unspecified non-institutional (private) residence as the place of occurrence of the external cause
CPT/HCPCS: 96372; 99284; J1885; J2360

== ENCOUNTER 2017-01-28 16:16 | Emergency (ER) | payer BC ==
[~2017-01-28 16:16] MED LIST changes: -CIPR500T2 PO; -CODE30TA2 PO; +IBUP1TAB7 PO; -METR-1 PO; +ROBA500T PO; -ZOFR4TAB3 SL; +ZOLO100T PO
[2017-01-28 16:21] VITALS: BP 154/70; PULSE 94; RESP 14; TEMP 98.2; O2SAT 100
--- NOTE | 2017-01-28 18:10 | RADRPT ---
EXAM DATE/TIME: 01/28/2017 16:52 [facility] COMPARISON: No previous studies available for comparison. INDICATIONS : Right foot, 5th digit pain after kicking couch. MEDICAL HISTORY : None. SURGICAL HISTORY : None. ENCOUNTER: Initial ACUITY: 2 days PAIN SCORE: 6/10 LOCATION: Right foot, 5th digit. FINDINGS: Three view examination of the right foot demonstrates no soft tissue swelling, dislocation, or fractu re. The tarsal bones appear intact. The interphalangeal and metatarsophalangeal joints are intact. The calcaneus is intact. Bony mineralization is normal. CONCLUSION: 1. No acute findings. Stephen Butts MD on January 28, 2017 at 18:07 Board Certified Radiologist. This report was verified electronically.
[2017-01-28] MEDS ORDERED: IBUPROFEN 800 MG TAB PO ONE (18:15)
--- NOTE | 2017-01-28 18:15 | PD ---
HPI Chief Complaint: Musculoskeletal Complaint Time Seen by Provider: 18:00 Travel History International Travel<30 days: No Contact w/Intl Traveler<30days: No Traveled to known affect area: No History of Present Illness HPI 31-year-old female presents to the ED for evaluation of 6/10 constant, throbbing pain of the right fifth toe. Onset last night after stubbing her toe on the couch. Pain is worsened by flexion of the foot. She denies numbness, tingling, weakness, limitations range of motion of the toes. She treated at home with Excedrin and IVs with some improvement of symptoms. She states that she works on her feet all day. Denies previous injury to the same area. 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) Immune Disorder: No Musculoskeletal: No Neurologic: No Psychiatric: No Reproductive: Yes (PROLAPSED UTERUS) Respiratory: No ?: Not : 1 Para: 1 Past Surgical History Abdominal Surgery: Yes (APPY) AICD: No Appendectomy: Yes Body Medical Devices: NONE Cardiac Surgery: No Ear Surgery: No Endocrine Surgery: No Eye Surgery: No Genitourinary Surgery: No Gynecologic Surgery: No Hysterectomy: Yes Joint Replacement: No Oral Surgery: No Pacemaker: No Thoracic Surgery: No Social History Alcohol Use: No Tobacco Use: No Substance Use: No Allergies-Medications (Allergen,Severity, Reaction): Coded Allergies: No Known Allergies (Verified , 11/12/16) Reported Meds & Prescriptions Reported Meds & Active Scripts Active Ibuprofen 800 Mg Tab 800 Mg PO Q8H PRN Robaxin (Methocarbamol) 500 Mg Tab 500 Mg PO QID PRN Reported Zoloft (Sertraline HCl) 100 Mg Tab 100 Mg PO DAILY Review of Systems Except as stated in HPI: all other systems reviewed are Neg Physical Exam Narrative GENERAL: Well-nourished, well-developed white female in no acute distress. SKIN: Focused skin assessment warm/dry. HEAD: Normocephalic. EYES: No scleral icterus. No injection or drainage. NECK: Supple, trachea midline. No JVD or lymphadenopathy. CARDIOVASCULAR: Regular rate and rhythm without murmurs, gallops, or rubs. RESPIRATORY: Breath sounds equal bilaterally. No accessory muscle use. GASTROINTESTINAL: Abdomen soft, non-tender, nondistended. MUSCULOSKELETAL: No cyanosis, or edema. FOCUSED RIGHT LOWER EXTREMITY EXAM: 2+ DP pulse. No ecchymosis. Mild edema noted. Tenderness to palpation of the MP joint of the fifth toe. Patient is able to wiggle her toes. Cap refill less than 2 seconds. Station intact to light touch distally. BACK: Nontender without obvious deformity. No CVA tenderness. Data Data Last Documented VS Vital Signs Date Time Temp Pulse Resp B/P (MAP) Pulse Ox O2 Delivery O2 Flow Rate FiO2 01/28/17 16:21 98.2 94 14 154/70 (98) 100 Orders Orders Foot, Complete ([id number]) (01/28/17 ) Ibuprofen (Motrin) (01/28/17 18:15) MDM Medical Decision Making Medical Screen Exam Complete: Yes Emergency Medical Condition: Yes Differential Diagnosis Contusion versus musculoskeletal pain versus fracture versus dislocation versus other Narrative Course 31-year-old female presents to the ED for evaluation the right little toe pain. Onset last night after taking the sofa. She is on her feet all day at work. Vitals reviewed. Physical exam reveals mild edema and tenderness to palpation of the MP joint of the fifth toe. Neurovascularly intact. Patient is able to wiggle the toes. X-ray reveals no acute fracture or dislocation. Patient was administered 800 mg ibuprofen and a postop shoe was applied. She is instructed to rest, ice, elevate the extremity, take ibuprofen up to 3 times a day as needed, follow with the orthopedist. She indicated understanding of instructions and is agreeable to the care plan. The patient is stable and discharged home. Diagnosis Primary Impression: Contusion of fifth toe, right Qualified Codes: S90.121A - Contusion of right lesser toe(s) without damage to nail, initial encounter Referrals: Orthopedist Patient Instructions: Contusion in Adults (ED), General Instructions Additional Instructions: Rest, ice, elevate the extremity. Apply ice no longer than 10-15 minutes per hour a few times a day. 800 mg ibuprofen up to 3 times a day as needed for pain. Return to normal, gentle activity as tolerated. No running, jumping activities for the next few weeks. Follow up with orthopedist or your primary care provider. Return to the ED for any urgent or emergent medical condition. Med/Other Pt SpecificInfo: Prescription(s) given Disposition: 01 DISCHARGE HOME Condition: Stable Claudette Parr Jan 28, 2017 18:15
[2017-01-28] MEDS ORDERED: IBUP1TAB7 PO (18:17)
== END 2017-01-28 18:33 | disposition home or self-care (01) ==
LOC: NEPK 16:16
DX: S90.121A Contusion of right lesser toe(s) without damage to nail, initial encounter (principal); I10 Essential (primary) hypertension; Z79.899 Other long term (current) drug therapy; W22.8XXA Striking against or struck by other objects, initial encounter
CPT/HCPCS: 73630; 99283; L3260